=== PATIENT | male | born 1935 | race Caucasian/White ===

== ENCOUNTER 2022-03-11 23:44 | Inpatient (IN) | payer OTHER ==
[~2022-03-11] VITALS: Ht 188 cm; Wt 81.0 kg
[~2022-03-11 23:44] MED LIST: ASPI-543 PO; BISO5TAB44 PO; CHOL20007 PO; COEN30CA10 PO; COEN400C8 OR; DABI1CAP PO; HYDR-4833 PO; ISO20T PO; LEVO25TA6 PO; LISI-275 PO; LORA-622 PO; OMEGCAP2 OR; VITA400C49 PO
[2022-03-12] MEDS ORDERED: AMIODARONE HCL 150 MG in D5W 5% 100 ML IV ONE ×2
[2022-03-12] MEDS ORDERED: AMIODARONE HCL (50 MG/ ML) 3 ML VIAL IV ONE (00:43)
[2022-03-12 01:23] LABS: Eosinophils # (auto) 0.1 10 ^3/uL (0-0.8); Hematocrit 46.3 % (41.0-53.0); Hemoglobin 15.3 g/dL (13.5-17.5); Lymphocytes # (auto) 0.7 10 ^3/uL (0.4-5.4); White Blood Cell 11.6 10^3/uL (4.4-10.8)
[2022-03-12 01:25] LABS: Basophils # (auto) 0.2 10 ^3/uL (0-0.2); Basophils % (auto) 1.4 % (0.0-2.0); Eosinophils % (auto) 0.6 % (0.0-7.0); Lymphocytes % (auto) 6.1 % (10.0-50.0); Mean Corpuscular Hemoglobin 27.2 pg (28.0-32.0); Mean Corpuscular Volume 82.4 fL (80.0-100.0); Monocytes # (auto) 1.1 10 ^3/uL (0-1.3); Monocytes % (auto) 9.1 % (0.0-12.0); Neutrophils # (auto) 9.6 10 ^3/uL (1.6-8.6); Neutrophils % (auto) 82.8 % (37.0-80.0); Nucleated Red Blood Cells % 0.1 %; Red Blood Cells 5.62 10^6/uL (4.5-5.90); Red Cell Distribution Width 16.5 % (11.8-14.3)
[2022-03-12] MEDS ORDERED: AMIODARONE 450mg/250ml AE 250 ML IV ONE (02:08)
[2022-03-12 02:11] LABS: Urine WBC None Seen /hpf (0 - 3)
[2022-03-12] MEDS ORDERED: AMIODARONE 450mg/250ml AE 250 ML IV SCH ×2 (02:15→08:15)
[2022-03-12 02:26] LABS: BUN/Creatinine Ratio 47.4; Magnesium 3.2 mg/dL (1.6-2.6)
[2022-03-12 02:27] LABS: Albumin 3.7 g/dL (3.4-5.0); Calcium 9.7 mg/dL (8.5-10.1); Total Protein 6.7 g/dL (6.4-8.2)
[2022-03-12 02:29] LABS: Potassium 2.7 mmol/L (3.5-5.1)
[2022-03-12 02:54] LABS: Urine Bacteria NONE SEEN /hpf (None Seen); Urine Blood Negative /uL (Negative); Urine Hyaline Cast FEW /lpf (0 - 2)
[2022-03-12] MEDS ORDERED: cefTRIAXone 1GM/50ML D5W 50 ML IV ONE (09:00)
[2022-03-12] MEDS ORDERED: NITROGLYCERIN 0.4 MG SL TAB SL PRN (09:30)
[2022-03-12] MEDS ORDERED: MORPHINE SULFATE INJ 2 MG/ml SYRG IV PRN (09:30)
[2022-03-12] MEDS ORDERED: POTASSIUM CHL 20 Meq TABLET PO ONE ×2 (09:30→12:00)
[2022-03-12] MEDS ORDERED: FUROSEMIDE 40 MG/4 ML VIAL IV ONE (10:00)
[2022-03-12] MEDS ORDERED: DEXTROSE (50%) 50ML SYRG IV PRN (10:15)
[2022-03-12] MEDS: POTASSIUM CHL 20MEQ/100ML 100 ML IV SCH (11:00)
[2022-03-12 11:02] LABS: Calcium 9.6 mg/dL (8.5-10.1)
[2022-03-12 11:06] LABS: BUN/Creatinine Ratio 43.5
[2022-03-12 11:11] LABS: INR 1.55 (0.9-1.15)
[2022-03-12] MEDS ORDERED: SODIUM CHLORIDE 0.9% 500 ML IV ONE (11:15)
[2022-03-12] MEDS ORDERED: ACETYLCYSTEINE ORAL for CIN 20%(200MG/ML) 4ML PO ONE (11:15)
[2022-03-12 11:36] LABS: Potassium 2.8 mmol/L (3.5-5.1)
[2022-03-12] MEDS: InsuLIN REG 1unit/0.01ml Soln (100units/ml) SC SCH ×2 (12:00→22:05)
[2022-03-12] MEDS: ACCU-CHEK COMFORT CURVE STRIP VI SCH ×2 (12:00→21:59)
[2022-03-12] MEDS ORDERED: IODIXANOL 320MG/ML 100ML BTL IV ONE (12:00)
[2022-03-12] MEDS ORDERED: LIDOCAINE 2%HCL (LOCAL ANESTH.) INJ 20ML MDV ONE (12:01)
[2022-03-12] MEDS ORDERED: HEPARIN SODIUM (PORCINE) 5000 UNITS/ML 1ML VIAL ONE (12:10)
[2022-03-12] MEDS ORDERED: ANGIOMAX 250 MG VIAL IV ONE (12:10)
[2022-03-12] MEDS ORDERED: VERAPAMIL 2.5MG/ML INJ 2ML VIAL IV ONE (12:10)
[2022-03-12] MEDS ORDERED: MIDAZOLAM HCL 2MG/2ML 2ml VIAL (1mg/ml) ONE (12:11)
[2022-03-12] MEDS ORDERED: SODIUM CHL 0.9% 0 ML ONE (12:11)
[2022-03-12] MEDS ORDERED: fentaNYL CITRATE 100 MCG/2 ML VL ONE (12:11)
[2022-03-12] MEDS ORDERED: AMIODARONE HCL 200 MG TAB PO ONE (14:00)
[2022-03-12 16:57] VITALS: BP 105/67
[2022-03-12 17:50] VITALS: BP 113/66
[2022-03-12 19:02] LABS: BUN/Creatinine Ratio 42.5; Calcium 9.4 mg/dL (8.5-10.1)
[2022-03-12 19:26] LABS: Potassium 2.8 mmol/L (3.5-5.1)
[2022-03-12] MEDS ORDERED: POTASSIUM CHL 20MEQ/100ML 100 ML IV SCH ×2 (21:30→22:30)
[2022-03-12] MEDS: ENOXAPARIN SOD 80 MG/0.8ML SYRINGE SC SCH (22:07)
[2022-03-12] MEDS: ATORVASTATIN 20 MG TAB PO SCH (22:07)
[2022-03-12] MEDS: AMIODARONE HCL 200 MG TAB PO SCH (22:07)
[2022-03-12] MEDS: ACETYLCYSTEINE ORAL for CIN 20%(200MG/ML) 4ML PO SCH (23:18)
[2022-03-12 23:25] VITALS: BP 105/68
[2022-03-13] MEDS: ACCU-CHEK COMFORT CURVE STRIP VI SCH ×4 (00:36→18:01)
[2022-03-13 04:43] LABS: Eosinophils # (auto) 0.1 10 ^3/uL (0-0.8); Nucleated Red Blood Cells % 0.1 %; Red Cell Distribution Width 16.2 % (11.8-14.3)
[2022-03-13 04:47] LABS: Basophils # (auto) 0.2 10 ^3/uL (0-0.2); Eosinophils % (auto) 0.6 % (0.0-7.0); Hematocrit 48.7 % (41.0-53.0); Hemoglobin 15.4 g/dL (13.5-17.5); Lymphocytes # (auto) 0.9 10 ^3/uL (0.4-5.4); Lymphocytes % (auto) 5.7 % (10.0-50.0); Mean Corpuscular Hgb Conc. 31.7 g/dL (32.0-36.0); Monocytes # (auto) 1.6 10 ^3/uL (0-1.3); Monocytes % (auto) 10.5 % (0.0-12.0); Neutrophils # (auto) 12.9 10 ^3/uL (1.6-8.6); Neutrophils % (auto) 82.2 % (37.0-80.0); Red Blood Cells 5.94 10^6/uL (4.5-5.90); White Blood Cell 15.7 10^3/uL (4.4-10.8)
[2022-03-13 04:48] VITALS: BP 117/73
[2022-03-13 04:50] LABS: Potassium 3.4 mmol/L (3.5-5.1)
[2022-03-13 04:55] LABS: Albumin 3.3 g/dL (3.4-5.0); Bilirubin, Total 1.4 mg/dL (0.2-1.0); Total Protein 6.4 g/dL (6.4-8.2)
[2022-03-13] MEDS: InsuLIN REG 1unit/0.01ml Soln (100units/ml) SC SCH ×4 (06:09→18:07)
[2022-03-13 09:00] VITALS: BP 102/67
[2022-03-13] MEDS: ACETYLCYSTEINE ORAL for CIN 20%(200MG/ML) 4ML PO SCH ×2 (10:00→23:12)
[2022-03-13] MEDS: AMIODARONE HCL 200 MG TAB PO SCH ×2 (10:00→23:11)
[2022-03-13] MEDS: ASPirin 81 mg TAB PO SCH (11:03)
[2022-03-13] MEDS: ENOXAPARIN SOD 80 MG/0.8ML SYRINGE SC SCH ×2 (11:04→23:11)
[2022-03-13] MEDS ORDERED: LACTULOSE 20Gm/30ML SOLN PO ONE (11:30)
[2022-03-13 13:00] VITALS: BP 110/68
[2022-03-13] MEDS: SACUBITRIL-VALSARTAN 24mg/26mg TAB PO SCH ×2 (13:20→23:11)
[2022-03-13 17:00] VITALS: BP 99/58
[2022-03-13 22:00] VITALS: BP 91/54
[2022-03-13] MEDS ORDERED: PRADAXA 110 MG PO SCH (22:00)
[2022-03-13] MEDS ORDERED: MAGNESIUM OXIDE 400 MG TAB PO SCH (22:00)
[2022-03-13] MEDS: ATORVASTATIN 20 MG TAB PO SCH (23:11)
[2022-03-14] MEDS: InsuLIN REG 1unit/0.01ml Soln (100units/ml) SC SCH ×4 (02:21→17:59)
[2022-03-14 05:00] VITALS: BP 91/55
[2022-03-14] MEDS: ACCU-CHEK COMFORT CURVE STRIP VI SCH ×4 (06:06→17:59)
[2022-03-14 08:42] VITALS: BP 82/45
[2022-03-14] MEDS: ASPirin 81 mg TAB PO SCH (09:03)
[2022-03-14] MEDS: ENOXAPARIN SOD 80 MG/0.8ML SYRINGE SC SCH (09:04)
[2022-03-14 09:21] LABS: Albumin 3.2 g/dL (3.4-5.0); Potassium 3.2 mmol/L (3.5-5.1)
[2022-03-14 09:24] LABS: Bilirubin, Total 1.1 mg/dL (0.2-1.0); Total Protein 5.9 g/dL (6.4-8.2)
[2022-03-14 09:27] LABS: Lymphocytes # (auto) 1.1 10 ^3/uL (0.4-5.4)
[2022-03-14 09:30] LABS: Basophils # (auto) 0.2 10 ^3/uL (0-0.2); Basophils % (auto) 1.3 % (0.0-2.0); Eosinophils # (auto) 0.2 10 ^3/uL (0-0.8); Hematocrit 44.3 % (41.0-53.0); Hemoglobin 14.3 g/dL (13.5-17.5); Mean Corpuscular Hemoglobin 26.3 pg (28.0-32.0); Mean Corpuscular Hgb Conc. 32.3 g/dL (32.0-36.0); Mean Corpuscular Volume 81.2 fL (80.0-100.0); Monocytes # (auto) 1.4 10 ^3/uL (0-1.3); Monocytes % (auto) 11.8 % (0.0-12.0); Neutrophils % (auto) 75.9 % (37.0-80.0); Nucleated Red Blood Cells % 0.1 %; Red Blood Cells 5.46 10^6/uL (4.5-5.90); Red Cell Distribution Width 16.2 % (11.8-14.3); White Blood Cell 11.9 10^3/uL (4.4-10.8)
[2022-03-14] MEDS: AMIODARONE HCL 200 MG TAB PO SCH ×2 (09:36→22:27)
[2022-03-14] MEDS ORDERED: SODIUM CHLORIDE 0.9% 1,000 ML IV ONE (09:45)
[2022-03-14] MEDS: POTASSIUM CHL 20MEQ/100ML 100 ML IV SCH ×2 (09:53→12:16)
[2022-03-14 14:01] VITALS: BP_SYST 79; BP_SYST 84; BP_DIAS 44; BP_DIAS 49
[2022-03-14 16:37] VITALS: BP_SYST 88; BP_SYST 92; BP_DIAS 53; BP_DIAS 54
[2022-03-14] MEDS ORDERED: AMIODARONE HCL 200 MG TAB PO ONE (17:15)
[2022-03-14] MEDS ORDERED: BUMETANIDE 2.5mg/10ml (0.25 mg/ml) INJ IV ONE (17:15)
[2022-03-14 19:57] VITALS: BP 96/53
[2022-03-14] MEDS ORDERED: SACUBITRIL-VALSARTAN 24mg/26mg TAB PO SCH (22:00)
[2022-03-14] MEDS: CARVEDILOL 3.125 MG TAB PO SCH (22:28)
[2022-03-14] MEDS: ATORVASTATIN 20 MG TAB PO SCH (22:37)
[2022-03-14] MEDS ORDERED: TEMAZEPAM 15 MG CAP PO ONE (23:45)
[2022-03-15] MEDS: ACCU-CHEK COMFORT CURVE STRIP VI SCH ×4 (00:01→17:57)
[2022-03-15] MEDS: InsuLIN REG 1unit/0.01ml Soln (100units/ml) SC SCH ×4 (00:01→18:00)
[2022-03-15] MEDS ORDERED: SODIUM CHLORIDE 0.9% 500 ML IV ONE (03:45)
[2022-03-15 08:47] VITALS: BP 91/55
[2022-03-15] MEDS: CARVEDILOL 3.125 MG TAB PO SCH ×2 (10:00→22:50)
[2022-03-15] MEDS: ENOXAPARIN SOD 80 MG/0.8ML SYRINGE SC SCH ×2 (10:00→10:16)
[2022-03-15] MEDS ORDERED: ALBUMIN 25% 100 ML IV ONE (10:15)
[2022-03-15] MEDS: ASPirin 81 mg TAB PO SCH (10:16)
[2022-03-15] MEDS: AMIODARONE HCL 200 MG TAB PO SCH ×2 (10:18→22:49)
[2022-03-15] MEDS: FUROSEMIDE 20 MG TAB PO SCH (10:18)
[2022-03-15 10:57] LABS: Albumin 2.9 g/dL (3.4-5.0); Potassium 4.5 mmol/L (3.5-5.1)
[2022-03-15 11:00] LABS: BUN/Creatinine Ratio 28.7
[2022-03-15 13:00] VITALS: BP 110/73
[2022-03-15 17:00] VITALS: BP 102/66
[2022-03-15] MEDS: DOPamine 1600MCG/ML D5W 250 ML IV SCH (17:39)
[2022-03-15 22:00] VITALS: BP 127/67
[2022-03-15] MEDS: ATORVASTATIN 20 MG TAB PO SCH (22:50)
[2022-03-16] MEDS: ACCU-CHEK COMFORT CURVE STRIP VI SCH ×4 (00:06→18:09)
[2022-03-16] MEDS: InsuLIN REG 1unit/0.01ml Soln (100units/ml) SC SCH ×4 (00:07→18:17)
[2022-03-16 05:00] VITALS: BP 97/61
[2022-03-16 06:08] LABS: Potassium 3.9 mmol/L (3.5-5.1)
[2022-03-16 06:14] LABS: Albumin 3.5 g/dL (3.4-5.0); BUN/Creatinine Ratio 32.9; Calcium 8.5 mg/dL (8.5-10.1); Magnesium 3.5 mg/dL (1.6-2.6); Total Protein 6.3 g/dL (6.4-8.2)
[2022-03-16 06:17] LABS: Bilirubin, Total 1.3 mg/dL (0.2-1.0)
[2022-03-16 08:48] VITALS: BP 107/58
[2022-03-16] MEDS: FUROSEMIDE 20 MG TAB PO SCH (10:00)
[2022-03-16] MEDS: CARVEDILOL 3.125 MG TAB PO SCH ×3 (10:00→22:00)
[2022-03-16] MEDS: ENOXAPARIN SOD 80 MG/0.8ML SYRINGE SC SCH (10:00)
[2022-03-16] MEDS: ASPirin 81 mg TAB PO SCH (11:09)
[2022-03-16] MEDS: AMIODARONE HCL 200 MG TAB PO SCH ×2 (11:10→22:58)
[2022-03-16 13:00] VITALS: BP 95/55
[2022-03-16] MEDS: ALBUMIN 25% 50 ML IV SCH ×2 (13:46→23:16)
[2022-03-16] MEDS: FUROSEMIDE 40 MG TAB PO SCH ×2 (13:47→22:59)
[2022-03-16] MEDS ORDERED: MILRINONE 20MG/100ML 100 ML IV SCH (14:45)
[2022-03-16 16:42] VITALS: BP 95/53
[2022-03-16] MEDS: DOPamine 1600MCG/ML D5W 250 ML IV SCH (18:37)
[2022-03-16 21:36] VITALS: BP 95/49
[2022-03-16] MEDS: ATORVASTATIN 20 MG TAB PO SCH (22:59)
[2022-03-17] MEDS: ACCU-CHEK COMFORT CURVE STRIP VI SCH (00:23)
[2022-03-17] MEDS: InsuLIN REG 1unit/0.01ml Soln (100units/ml) SC SCH (00:33)
== END 2022-03-17 01:30 | disposition short-term general hospital (02) | DRG 280 ==
LOC: ER 23:44 → EDBD 23:44 → TELE 03-12 09:43 → TELE-WESTW 03-12 14:32
PROVIDERS: ADMIT Registered Nurse; ATTEND Family Medicine
PROC: 4A023N7 Measurement of Cardiac Sampling and Pressure, Left Heart, Percutaneous Approach (ICD-10-PCS; principal; 2022-03-12)
PROC: B213YZZ Fluoroscopy of Multiple Coronary Artery Bypass Grafts using Other Contrast (ICD-10-PCS; 2022-03-12)
PROC: B218YZZ Fluoroscopy of Left Internal Mammary Bypass Graft using Other Contrast (ICD-10-PCS; 2022-03-12)
PROC: B211YZZ Fluoroscopy of Multiple Coronary Arteries using Other Contrast (ICD-10-PCS; 2022-03-12)
PROC: B215YZZ Fluoroscopy of Left Heart using Other Contrast (ICD-10-PCS; 2022-03-12)
DX: T82.119A Breakdown (mechanical) of unspecified cardiac electronic device, initial encounter (principal); I21.4 Non-ST elevation (NSTEMI) myocardial infarction; I50.23 Acute on chronic systolic (congestive) heart failure; N17.0 Acute kidney failure with tubular necrosis; I13.0 Hypertensive heart and chronic kidney disease with heart failure and stage 1 through stage 4 chronic kidney disease, or unspecified chronic kidney disease; I47.2 Ventricular tachycardia; I48.20 Chronic atrial fibrillation, unspecified; I48.92 Unspecified atrial flutter; I42.9 Cardiomyopathy, unspecified; N18.32 Chronic kidney disease, stage 3b; E03.9 Hypothyroidism, unspecified; E11.22 Type 2 diabetes mellitus with diabetic chronic kidney disease; E78.5 Hyperlipidemia, unspecified; R79.89 Other specified abnormal findings of blood chemistry; Z20.822 Contact with and (suspected) exposure to COVID-19; E78.00 Pure hypercholesterolemia, unspecified; E87.6 Hypokalemia; I25.10 Atherosclerotic heart disease of native coronary artery without angina pectoris; Z63.4 Disappearance and death of family member; Z79.4 Long term (current) use of insulin; Z80.1 Family history of malignant neoplasm of trachea, bronchus and lung; Z80.3 Family history of malignant neoplasm of breast; Z80.42 Family history of malignant neoplasm of prostate; Z80.8 Family history of malignant neoplasm of other organs or systems; Z81.8 Family history of other mental and behavioral disorders; Z82.0 Family history of epilepsy and other diseases of the nervous system; Z82.3 Family history of stroke; Z82.49 Family history of ischemic heart disease and other diseases of the circulatory system; Z82.5 Family history of asthma and other chronic lower respiratory diseases; Z82.62 Family history of osteoporosis; Z83.3 Family history of diabetes mellitus; Z95.1 Presence of aortocoronary bypass graft; Z95.810 Presence of automatic (implantable) cardiac defibrillator; Z51.5 Encounter for palliative care; Z98.61 Coronary angioplasty status; Y71.2 Prosthetic and other implants, materials and accessory cardiovascular devices associated with adverse incidents
CPT/HCPCS: 36415; 71045; 80048; 80053; 80061; 81001; 82962; 83036; 83735; 83880; 84443; 84484; 85025; 85610; 87081; 93005; 93306; 93459; 96361; 96365; 96375; 99152; 99153; 99291; G0378; J0696; J1815; J2250; J3480; J7060; P9047; Q9967